=== PATIENT | male | born 1970 | race Caucasian/White ===

== ENCOUNTER 2016-10-27 09:16 | Day surgery (SDC) | payer BC ==
[2016-10-27 10:49] VITALS: BMI 32.1
[2016-10-27] MEDS ORDERED: Midazolam 2 MG/2 ML VIAL ONE (12:21)
[2016-10-27] MEDS ORDERED: Propofol 10 mg/ml Inj (20 ML) ONE (12:21)
--- NOTE | 2016-10-27 12:53 | CP.SDSHP ---
Same Day Surgery H & P - History Proposed Procedure: EGD Pre-Op Diagnosis: epigastric pain - Previous Medical/Surgical History Endocrine/Metabolic: Diabetes Comments: anxiety - Allergies Allergies: Allergies No Known Allergies Allergy (Verified 10/27/16 10:42) - Current Medications Current Medications: see med list - Physical Exam General Appearance: NAD Vital Signs: Vital Signs 10/27/16 09:50 Temperature 98 F Pulse Rate 66 Respiratory 16 Rate Blood Pressure 120/83 O2 Sat by Pulse 98 Oximetry Mental Status: Alert & Oriented x3 Heart: WNL Lungs: WNL GI: WNL - {Optional Preform as Required} Abdomen: WNL - Impression Impression: 45 year old male with h/o PPI refractory epigastric pain here for EGD Pt. Evaluated Today:Candidate for Anesthesia & Procedure: Yes - Date & Time Date: 10/27/16 Time: 12:53 Short Stay Discharge - Short Stay Discharge Admitting Diagnosis/Reason for Visit: EPIGASTRIC PAIN Disposition: HOME/ ROUTINE
[2016-10-27 13:35] VITALS: TEMP 97.8
[2016-10-27 14:21] VITALS: BP 121/85; PULSE 62; RESP 14; O2SAT 100
== END 2016-10-27 14:15 | disposition home or self-care (01) ==
LOC: C.ENDO 09:16
PROVIDERS: ATTEND Internal Medicine Gastroenterology
DX: K29.50 Unspecified chronic gastritis without bleeding (principal); K31.89 Other diseases of stomach and duodenum
CPT/HCPCS: 43239; 82948; 88305; 88312; 88342; J2250; J2704